=== PATIENT | male | born 1955 | race Caucasian/White ===

== ENCOUNTER 2019-08-22 19:45 | Emergency (ER) | payer OTHER ==
[~2019-08-22] VITALS: Ht 167.6 cm; Wt 70.3 kg
[2019-08-22] MEDS ORDERED: DOXYCYCLINE 10100 M2 PO (20:19)
[2019-08-22 20:40] VITALS: BP 172/99
== END 2019-08-22 20:41 | disposition home or self-care (01) ==
LOC: M.ERS 19:45
DX: L73.9 Follicular disorder, unspecified (principal)

== ENCOUNTER 2019-09-07 15:52 | Inpatient (IN) | payer OTHER ==
[~2019-09-07] VITALS: Ht 172.7 cm; Wt 75.1 kg
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
--- NOTE | ~2019-09-07 | CON ---
[address] [address] CONSULTATION Name: JULIUS BOYKIN Wilfredo Room: [address] IN .R.#: [id number] Admission: 09/09/19 Attend Phys: Shara Melendrez Discharge: Date of : 57 Report #: [id number] THIS REPORT FOR: //name// cc: PAM Feng No family physician/PCP PAM - No family physician/PCP ~ THIS REPORT FOR: //name// CC: [facility] physician/PCP Grant Rodriguez DATE OF SERVICE: 09/24/2019 HISTORY OF PRESENT ILLNESS: This is a 64-year-old male patient who was seen by me for altered mental status. The patient apparently has a history of significant alcohol intake. His son is here. He indicated that his memory was falling, but I do not know how bad it was. The record says that he has alcoholic dementia. He has fallen down multiple times. He does not provide any history because he virtually has no memory. A 14-point review of system was carried out from the patient. He does not have much memory. His family does not know a lot history either. He was agitated and confused, but he has become somewhat better. On admission, he had a white count of 19,000. He does have a history of depression and multiple abrasions as per record. This is all the 14-point review of system I can carry out. PAST MEDICAL HISTORY: Positive for alcohol. FAMILY HISTORY: Unavailable. SOCIAL HISTORY: He drinks heavy amount of alcohol. PHYSICAL EXAMINATION: NEUROLOGIC: Pretty limited. He does have speech. When I asked him what month it is, he says it is December. He does not know the name of the president and he does not know what hospital he is in. He appeared to be having some hallucination and misinformation. He thinks he is in downtime and he thinks somebody is outside. Rest of the examination was difficult because of his condition, but he moves all 4 extremities. He says he has sensation in the lower extremities. Either he did not relax, so he does not have any reflexes. He did not cooperate with the fundus examination. Cranial nerve examination was incomplete because of the patient's poor cooperation. CHEST: He does not have any respiratory difficulty. CARDIAC: Appears unremarkable. HEENT: He has no thyroid mass. VITAL SIGNS: Blood pressure is 136/67, pulse is 54, temperature is 98.4. LABORATORY DATA: His white count is 10.5 now, [place] [address] CONSULTATION Name: JULIUS BOYKIN Room: [address]#: [id number] Admission: 09/09/19 Attend Phys: Shara Melendrez Discharge: Date of : 57 Report #: [id number] IMAGING STUDY: Indicates a CT scan has been done, which appears unremarkable. IMPRESSION AND PLAN: If this patient has alcoholic dementia, then I do not think much can be done to help him. He needs to be on thiamine and multivitamin and he is on that. We will check his TSH and vitamin B12. We will try to confirm with family that he has documented dementia secondary to alcohol. May do MRI sometime as an inpatient or outpatient. Family is agreeable with this. Thank you very much for this referral. By: [id number] Sifuentes MD /nt
[~2019-09-07 15:52] MED LIST: DOXYCYCLINE 10100 M2 PO
[2019-09-07 16:18] VITALS: BP 130/75
[2019-09-07] MEDS ORDERED: HYPERTENSION MED (16:21)
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
[2019-09-07 16:48] LABS: URINE BILIRUBIN 1+ (Negative); URINE BLOOD 2+ (Negative); URINE CLARITY CLEAR; URINE COLOR DARK YELLOW; URINE GLUCOSE-RANDOM NEGATIVE (Negative); URINE KETONES TRACE (Negative); URINE LEUKOCYTES-REFLEX NEGATIVE (Negative); URINE NITRITE-REFLEX NEGATIVE (Negative); URINE PROTEIN 1+ (Negative); URINE SPECIFIC GRAVITY 1.025 (1.005-1.030)
[2019-09-07 16:49] LABS: ICTOTEST (BILI CONFIRMATORY) Negative (Negative)
[2019-09-07 16:59] LABS: AMP/METHAMP Negative (Negative); BARBITURATES Negative (Negative); BENZODIAZEPINES Negative (Negative); COCAINE Negative (Negative); METHADONE Negative (Negative); OPIATES Negative (Negative); PCP Negative (Negative); THC POSITIVE (Negative)
[2019-09-07 17:04] LABS: HEMATOCRIT 38.6 % (42.0-52.0); MCH 31.7 pg (26.0-34.0); MCHC 33.7 g/dL (28.0-37.0); NUCLEATED RBCS 0 /100WBC; PLATELET COUNT* 268 thou/uL (150-400); RBC 4.11 mil/uL (4.50-6.00); RDW-CV 14.2 % (10.5-14.5)
[2019-09-07 17:14] LABS: CALCIUM 8.6 mg/dL (8.5-10.1); CREATININE 0.9 mg/dL (0.6-1.3); POTASSIUM 3.7 mmol/L (3.5-5.1)
[2019-09-07 17:17] LABS: HYALINE CASTS >10 Many /LPF (None Seen); MUCUS 4-6 Moderate strn/LPF (None Seen); SQUAMOUS 0-3 Few /LPF (0-3)
[2019-09-07 17:18] LABS: BACTERIA-REFLEX 1-9 Few /HPF (None Seen); CRYSTALS None Seen /LPF (None Seen); URINE WBC-REFLEX 0-5 Rare /HPF (0-5)
[2019-09-07 17:19] LABS: TOTAL BILIRUBIN 0.8 mg/dL (<0.1-1.0); TOTAL PROTEIN 6.7 g/dL (6.4-8.2)
[2019-09-07 17:28] LABS: ACETAMINOPHEN < 2 ug/mL (10-30); ALCOHOL < 10 mg/dL (<10)
[2019-09-07 17:36] LABS: ABSOLUTE LYMPHOCYTES 1.1 thou/uL (0.8-5.3); ABSOLUTE MONOCYTES 1.3 thou/uL (0.0-1.2); ABSOLUTE NEUTROPHILS 16.5 thou/uL (1.6-8.1); PLATELET ESTIMATE ADEQUATE
--- NOTE | 2019-09-07 19:00 | NUR ---
ASSUMED CARE OF PT, REPORT RECEIVED FROM OLGA. PT QUIET, CALM, POLITE, AND COOPERATIVE. NO DIFFICULTY FOLLOWING COMMANDS, BUT IS FORGETFUL, AND NEEDS FREQUENT REMINDERS TO STAY IN HIS ROOM. SEE CONSTANT OBSERVATION FLOWSHEET. WILL CONTINUE TO MONITOR.
--- NOTE | 2019-09-08 11:21 | EKG ---
[place] [address] ELECTROCARDIOGRAM REPORT Name: JULIUS BOYKIN Room: [facility]#: [id number] Admission: 09/07/19 Attend Phys: Discharge: Date of : 57 Date of Service: 09/07/19 1645 Report #: [id number] THIS REPORT FOR: //name// [facility] ED Test Date: 2019-09-07 Test Time: 16:45:01 Pat Name: JULIUS BOYKIN Department: Room: Gender: Filling Mixer: [facility] : 1955 Requested By: Rogerio Vasques Order Number: [id number] MD: Tavares Awan Measurements Intervals [place] Rate: 83 P: 21 ME: 162 QRS: -24 QRSD: 89 T: 50 QT: 388 QTc: 456 Interpretive Statements Sinus rhythm Atrial premature complexes Probable left atrial enlargement Borderline left axis deviation No previous ECG available for comparison Electronically Signed On 09-08-2019 11:21:06 CDT by Tavares Awan [email or web address] <ELECTRONICALLY SIGNED> By: Tavares Awan MD, [facility] 09/08/19 1121 1645 44 Tavares Awan MD, FACC /EPI
[2019-09-09] VITALS (13 sets, daily range): BP systolic 95–149; BP diastolic 53–125
[2019-09-09 06:56] LABS: ABSOLUTE BASOPHILS 0.1 thou/uL (0.0-0.2); ABSOLUTE EOSINOPHILS 0.1 thou/uL (0.0-0.7); ABSOLUTE LYMPHOCYTES 2.3 thou/uL (0.8-5.3); ABSOLUTE MONOCYTES 1.2 thou/uL (0.0-1.2); ABSOLUTE NEUTROPHILS 10.7 thou/uL (1.6-8.1); BASOPHILS 0.4 %; HEMATOCRIT 38.7 % (42.0-52.0); HEMOGLOBIN 13.3 gm/dL (14.0-18.0); LYMPHOCYTES 16.1 %; MCH 32.2 pg (26.0-34.0); MCHC 34.4 g/dL (28.0-37.0); MCV 93.6 fL (80.0-100.0); MONOCYTES 8.3 %; MPV 8.2 fl. (7.2-11.1); NUCLEATED RBCS 0 /100WBC; PLATELET COUNT* 306 thou/uL (150-400); POLYS 74.2 %; RBC 4.13 mil/uL (4.50-6.00); RDW-CV 14.5 % (10.5-14.5); WBC 14.4 thou/uL (4.0-11.0)
[2019-09-09 07:04] LABS: CALCIUM 8.7 mg/dL (8.5-10.1); CREATININE 0.7 mg/dL (0.6-1.3); POTASSIUM 3.5 mmol/L (3.5-5.1)
[2019-09-09 07:09] LABS: ALBUMIN 2.8 g/dL (3.4-5.0); TOTAL BILIRUBIN 0.6 mg/dL (<0.1-1.0); TOTAL PROTEIN 6.5 g/dL (6.4-8.2)
--- NOTE | 2019-09-09 19:29 | NUR ---
PT RECEIVED FROM ER AT 0745, MILDLY SEDATED. BANANA BAG AND D5NS STARTED AT 100 MLS/HR. DAUGHTER (MARIMAR) CALLED FOR ADMISSION QUESTIONS AND UPDATED REGARDING THE CONDITION. PT'S CIWA-10, ATIVAN GIVEN PER PROTOCOL. WAKES UP AT TIMES BUT OTHERWISE SOMNOLENT. PRECEDEX STARTED PER PROTOCOL. ONE TO ONE OBSERVATION DC'd PER DR MANZANARES. BED ALARMS ON. PT INCONTINENT, GOOD URINE OUTPUT. Q2 TURNS PROVIDED.
[2019-09-10] VITALS (23 sets, daily range): BP systolic 119–174; BP diastolic 65–108
--- NOTE | 2019-09-10 05:01 | NUR ---
VITALS STABLE, AFEBRILE. DIFFICULT TO SEDATE PATIENT HE WAS TRYING TO CLIMB OUT OF BED. MULTIPLE ATIVAN DOSES FOR COMFORT, TREMORS NOTED WHEN AWAKE. PATIENT DECLINES HEADACHE,BUT OTHERWISE UNABLE TO ASSESS EXTENT OF WITHDRAWAL PATIENT WAS UNABLE TO ANSWER THOSE QUESTIONS. PRECEDEX RUNNING AT 1 MCG/KG/HR AT THIS TIME, WAS MAXED AT ONE POINT, REFER TO CHART FOR DETAILS. OTHERWISE UNEVENTFUL NIGHT. PATIENT INCONTINENT, MAKING PLENTY OF URINE. EXTERNAL CATHETER PLACED THIS AM, PATIENT TOLERATED WELL AND NOT TRYING TO PULL IT OUT AT THIS TIME. NO BM. Q2 TURNS TOLERATED, PATIENT CONSTANTLY SHIFTS SELF IN BED. BED IN LOWEST POSITION, BED ALARM ON. WILL CONTINUE MONITORING.
[2019-09-10 08:15] LABS: ALBUMIN 2.3 g/dL (3.4-5.0); CALCIUM 7.7 mg/dL (8.5-10.1); CREATININE 0.6 mg/dL (0.6-1.3); MAGNESIUM 1.9 mg/dL (1.8-2.4); POTASSIUM 3.6 mmol/L (3.5-5.1); TOTAL BILIRUBIN 0.4 mg/dL (<0.1-1.0); TOTAL PROTEIN 5.6 g/dL (6.4-8.2)
--- NOTE | 2019-09-10 12:52 | NUR ---
Nutrition: Pt admitted with ETOH W/D, DTs. Physician indicated mild PCM - defer. Pressure ulcer apparently on coccyx. Protein stores are severely low, alb 2.3, prealb 14.5. Regular diet ordered. Wt: 165#. Consult for "poor intake." Confusion. Ate 25% of BKFST today. B1, MVI. Increased nutrient needs R/T wound healing AEB chart review. RD will order Oracio bid. Please encourage good po intake at meal times. Consider mild risk at this time.
--- NOTE | 2019-09-10 19:19 | NUR ---
ASSESSMENT CHARTED. VSS THROUGHOUT SHIFT. CIWA CURRENTLY 4. PATIENT IS A&O TO PERSON/PLACE BUT IS FORGETFUL AND CONFUSED AT TIMES. BELONGINGS SENT HOME WITH SON-IN-LAW SHAQUILLE DELUCA. NO OTHER EVENTS DURING THIS SHIFT.
--- NOTE | 2019-09-10 22:40 | NUR ---
PATIENT OFF PRECEDEX GTT AND INCREASINGLY CONFUSED. DISCONNECTED BOTH IVs AND EXTERNAL CATHETHER X2. ATIVAN GIVEN. INDWELLING CATHETER AND MITTENS PLACED. BED ALARM ON. WILL CONTINUE MONITORING.
[2019-09-11] VITALS (29 sets, daily range): BP systolic 109–190; BP diastolic 58–110
--- NOTE | 2019-09-11 01:15 | NUR ---
UNABLE TO CALM PATIENT. PT INCREASINGLY CONFUSED, AGITATED AT TIMES. PRECEDEX UP TO 1 MCG/KG/HR WITH Q30 ATIVAN WITH MINAMAL EFFECT. PT PULLING MITTENS, COBAND AND LINES OFF. HR IN 120s. WILL REORIENT AND TITRATE DOWN TOLERATED.
--- NOTE | 2019-09-11 04:56 | NUR ---
ABLE TO TITRATE PRECEDEX DOWN TO 3MCG/KG/HR WITH ATIVAN PUSHES. VITALS STABLE, AFEBRILE. CIWA 11. PT DOES REPORT VISUAL AND AUDITORY HALLUCINATIONS. REPORTS SEEING "A DOG THAT IS PANTING." ALSO REPROTS HEADACHE, DENIES NAUSEA. ADEQUATE UOP, NO BM. BED ALARM ON. CALL LIGHT WITHIN REACH. WILL CONTINUE MONITORING.
[2019-09-11 06:04] LABS: MCH 31.7 pg (26.0-34.0); MCHC 33.5 g/dL (28.0-37.0); MCV 94.6 fL (80.0-100.0); MPV 8.6 fl. (7.2-11.1); RBC 3.8 mil/uL (4.50-6.00); RDW-CV 14.1 % (10.5-14.5); WBC 13.9 thou/uL (4.0-11.0)
[2019-09-11 06:18] LABS: CALCIUM 8.3 mg/dL (8.5-10.1); CREATININE 0.5 mg/dL (0.6-1.3); MAGNESIUM 1.9 mg/dL (1.8-2.4); POTASSIUM 3.3 mmol/L (3.5-5.1)
--- NOTE | 2019-09-11 13:18 | NUR ---
ICU rounds: Tele status. Hallucinations last evening. IVABX. CM spoke with Pt's son via phone. Pt resides at home with son and son's family. Pt is independent, family completes IADLs. Per son, Pt can ambulate but walks extremely slow. Son wants a walker at dc, if Pt qualifies. No hx of HH or SNF. Pt's PCP is Dr Martin. Per son, Pt has a hx of suicidal ideations, may need [facility] psych at dc. CM explained how that process works in getting someone to [facility]/inpt psych. Following.
--- NOTE | 2019-09-11 18:23 | NUR ---
ASSESSMENT CHARTED. CURRENT CIWA 21. NOT RESPONSIVE TO ATIVAN OR HALDOL. BP AND HR ELEVATED. PATIENT IS NOT DIRECTABLE. MITTENS APPLIED FOR SAFETY. NURSE AT THE BEDSIDE.
--- NOTE | 2019-09-11 21:53 | NUR ---
2000-PATIENT EXTEREMLY AGITATED, SWINGING WITH ARMS AND LEGS. CURSING AND INSULTING STAFF. INCREASED HR, BP, SKIN FLUSHED, TEMP 99.3F, MODERATE DIAPHORESIS. PT DENIES PAIN, NAUSEA. DISORIENTED X4. PT CONTINUOUSLY TAKING MITTENS OFF AND PULLING ON LINES/HU. BILATERAL SOFT WRIST RESTRAINTS APPLIED PER ORDER. Q30 ATIVAN AND HALDOL ON BOARD. WILL CONTINUE MONITORING.
[2019-09-12] VITALS (22 sets, daily range): BP systolic 123–190; BP diastolic 60–105
--- NOTE | 2019-09-12 05:29 | NUR ---
PT SLEPT THROUGH SOME OF THE NIGHT, NOW AWAKE AND TRYING TO CLIMB OUT OF BED. CIWA 20. COMPLAINS OF LEFT SHOULDER PAIN, DOES NOT LIKE MOVEMENT ON THAT SHOULDER. NO BM, 2000 CC BLOODY UOP. OTHERWISE UNEVENTFUL NIGHT. WILL CONTINUE REORIENTING/MONITORING.
[2019-09-12 06:32] LABS: CALCIUM 8.5 mg/dL (8.5-10.1); CREATININE 0.6 mg/dL (0.6-1.3); MAGNESIUM 1.8 mg/dL (1.8-2.4); POTASSIUM 3.6 mmol/L (3.5-5.1)
--- NOTE | 2019-09-12 14:33 | NUR ---
ICU rounds: Pt had a rough night. Pt in restraints and was agitated. Doing better now. CIWA is up. Ativan given last night. Pt is withdrawing. Possible tele psych consult pending for when Pt is more medically stable.
--- NOTE | 2019-09-12 18:31 | NUR ---
Marked progress today from yesterday. Rested comofortably until late morning. Displayed decreased agitation and increased ability to follow commands throughout the day, however requires soft restraints as he continues to reach for urinary catheter, IV's, SCD and monitoring equipment. Requires frequent reorientation with repeat questioning. PO intake improved. No BM x 2 days. PO fluids pushed. Bisacoydl given. James blood continues in urinary cath w/ adequate output. Continues to complain of left shoulder pain. Lidocaine patch applied. IV pain medication effective. Will continue to monitor until handoff
[2019-09-13] VITALS (23 sets, daily range): BP systolic 117–191; BP diastolic 55–126
--- NOTE | 2019-09-13 05:22 | NUR ---
UNEVENTFUL NIGHT. VITALS STABLE, AFEBRILE. PT SLEPT THROUGH THE NIGHT. ORIENTED TO SELF, , YEAR AND PRESIDENT WHEN ALERT. DISORIENTED X3/4 OTHERWISE. PT DOES REPORT SEEING A DOG IN THE ROOM. DENIES AUDITORY HALLUCINATIONS. PT REACHES FOR HU/LINES WHEN OFF RESTRAINTS DURING PASSIVE ROM/TURNS. 1800CC BLOODY UOP, NO BM. Q2 TURNS FOR SKIN INTEGRITY. WILL CONTINUE MONITORING.
--- NOTE | 2019-09-13 16:52 | NUR ---
ICU rounds: Sleeping alot. Combative and in restraints until this morning. Tele status tomorrow. CM to contact Pt's dtr to discuss dispo
--- NOTE | 2019-09-13 19:13 | NUR ---
PT VERY DROWSY AT THE BEGINNING OF THE SHIFT, CIWA 7. AT THE END OF THE SHIFT, PT TRYING TO GET OUT OF BED MULTIPLE TIMES AND PULLING ON LINES, VERY CONFUSED ATIVAN GIVEN ONCE. VSS. MINIMAL ORAL INTAKE. HU CATH CHANGED IT WAS LEAKING. URINE DARK RED. B/L MITTENS APPLIED. BED ALARMS ON.
[2019-09-14] VITALS (11 sets, daily range): BP systolic 121–170; BP diastolic 60–88
--- NOTE | 2019-09-14 03:16 | NUR ---
ASSUMED PATIENT CARE AT 1900. ASSESSMENTS COMPLETED CHARTED. CARDIAC MONITORING IN PLACE. PATIENT IS IMPULSIVE AND HAS TRIED TO GET OUT OF BED ON MULTIPLE OCCASIONS. FALL PRECAUTIONS IN PLACE FOR PATIENT SAFETY. BED LOCKED AND IN LOWEST POSITION. CLWR.
--- NOTE | 2019-09-14 08:23 | NUR ---
0919 ASSUMED CARE OF PATIENT.PLEASE SEE DOCUMENTED ASSESSMENT. PT IS VERY DROWSY AT THIS TIME AND NOT ANSWERING QUESTIONS. DR MANZANARES HERE. PT CAN TRANSFER TO TELE
[2019-09-14 09:52] LABS: HEMATOCRIT 40.9 % (42.0-52.0); HEMOGLOBIN 13.6 gm/dL (14.0-18.0); MCH 31.1 pg (26.0-34.0); MCHC 33.2 g/dL (28.0-37.0); MCV 93.7 fL (80.0-100.0); NUCLEATED RBCS 0 /100WBC; PLATELET COUNT* 428 thou/uL (150-400); RBC 4.37 mil/uL (4.50-6.00); RDW-CV 14.2 % (10.5-14.5); WBC 14.8 thou/uL (4.0-11.0)
[2019-09-14 10:36] LABS: ALBUMIN 2.6 g/dL (3.4-5.0); CALCIUM 8.3 mg/dL (8.5-10.1); CREATININE 0.8 mg/dL (0.6-1.3); POTASSIUM 3.7 mmol/L (3.5-5.1); TOTAL BILIRUBIN 0.4 mg/dL (<0.1-1.0); TOTAL PROTEIN 6.5 g/dL (6.4-8.2)
--- NOTE | 2019-09-14 10:41 | NUR ---
PATIENT TO MOVE TO TELEMETRY. SON ORION NOTIFIED. PT ATE VERY LITTLE BREAKFAST,REFUSING ALL BUT LIQUIDS. RECEIVED NOTICE OF AXILLA POSITIVE FOR MRSA.
--- NOTE | 2019-09-14 11:01 | NUR ---
PATIENT TO MOVE TO ROOM 222. REPORT TO ROBBIE. [place] WEI
[2019-09-14 11:33] LABS: LYMPHOCYTES ND %; POLYS ND %
--- NOTE | 2019-09-14 12:00 | NUR ---
ASSUMED CARE OF PATIENT FROM THE ICU. PT IS RESTLESS BUT FOLLOW COMMANDS. I AGREE WITH THE ICUS ASSESSEMENT. PT WAS EDUCATED ON POC, DISEASE PROCESS AND USING THE CALL LIGHT FOR ASSISTANCE. BED IN LOWEST POSITION AND CALL LIGHT IS IN REACH. BED ALARM IS ON, WILL CONTINUE TO MONITOR.
--- NOTE | 2019-09-14 13:20 | NUR ---
ICU rounds: Tele status, Pt transferred to room 222
[2019-09-15 00:44] VITALS: BP 153/71
[2019-09-15 04:12] VITALS: BP 116/72
--- NOTE | 2019-09-15 04:18 | NUR ---
INITAL ASSESMENT COMPLETED AT 1944. PT'S CIWA AT THAT TIME 21. UNABLE TO ORIENT PT.PT UNABLE TO UNDERSTAND OR FOLLOW INSTRUCTIONS. PT GIVEN PRN ATIVAN. UNABLE TO DRAW AM LABS THIS MORNING. PT PULLING AND GRABBING WHILE ATTEMPTING TO DRAW BLOOD.
--- NOTE | 2019-09-15 06:29 | NUR ---
PT RESTLESS AGAIN THIS AM. PT ATTEMPTING TO PULL OUT SALINE LOCK AND CLIMB OVER SIDE RAILS. PT NO FOLLOWING COMMANDS, CIWA SCORE > 15. PT GIVEN PRN ATIVAN AND VISTARIL.
[2019-09-15 08:20] VITALS: BP 129/63
[2019-09-15 11:56] VITALS: BP 139/62
[2019-09-15 17:01] VITALS: BP 157/72
--- NOTE | 2019-09-15 19:03 | NUR ---
ASSUMED PT CARE AT 0730, FULL ASSESSMENT DONE CHARTED. PT ALERT TO SELF ONLY, VERY CONFUSED, HE DID NOT OPEN EYES OR RESPOND VERBALLY THIS AM FOR THE FIRST FEW HOURS OF MY SHIFT. HE DID START WAKING UP AND ATE SOME LUNCH WITH ASSISTANCE. IV WAS PULLED OUT, PT PULLING AT HU SO IT WAS REMOVED, URINE BECAME DARK TEA COLORED. IV REPLACED IN RAC.ATTEMPTED TO HAVE PT STAND AT BEDSIDE BUT HE WAS UNABLE WITH HIS KNEES BUCKLING UNDER HIM. HE WAS TURNED Q2H, STG 1 PI TO COCCYX NOTED, BARRIER CREAM APPLIED. UPDATED PTS DTR ON CARE. FALL PRECAUTIONS MAINTAINED WITH BED ALARM ON.
[2019-09-15 20:00] VITALS: BP 176/82
[2019-09-16] VITALS: BP 174/99
[2019-09-16 04:00] VITALS: BP 147/68
[2019-09-16 05:09] LABS: HEMATOCRIT 38.5 % (42.0-52.0); HEMOGLOBIN 12.5 gm/dL (14.0-18.0); MCH 31.8 pg (26.0-34.0); MCHC 32.6 g/dL (28.0-37.0); MCV 97.8 fL (80.0-100.0); MPV 8.8 fl. (7.2-11.1); RBC 3.94 mil/uL (4.50-6.00); RDW-CV 14.5 % (10.5-14.5); WBC 10.1 thou/uL (4.0-11.0)
[2019-09-16 05:30] LABS: ALBUMIN 2.3 g/dL (3.4-5.0); CALCIUM 8.6 mg/dL (8.5-10.1); CREATININE 0.6 mg/dL (0.6-1.3); POTASSIUM 3.8 mmol/L (3.5-5.1); TOTAL BILIRUBIN 0.3 mg/dL (<0.1-1.0); TOTAL PROTEIN 6.1 g/dL (6.4-8.2)
--- NOTE | 2019-09-16 05:43 | NUR ---
ASSESSMENT COMPLETED AT BEDSIDE, PLEASE REFER TO CHARTING FOR DETAILS. MEDICATIONS ADMINISTERED PER MAR. HOURLY ROUNDING FOR SAFETY. FALL PRECAUTIONS IN PLACE, BED ALARM IS ON AND CALL LIGHT WITHIN REACH. PT CONT TO HAVE EPISODES OF CONFUSION AND IMPULSIVE BEHAVIOR, BUT IS REDIRECTABLE. REQUIRED PRN INTERVENTION X2 THIS SHIFT.
[2019-09-16 08:00] VITALS: BP 154/84
[2019-09-16 14:46] VITALS: BP 128/80
[2019-09-16 18:43] VITALS: BP 145/65
[2019-09-16 20:00] VITALS: BP 162/67
[2019-09-17 00:28] VITALS: BP 123/65
[2019-09-17 04:00] VITALS: BP 136/71
--- NOTE | 2019-09-17 05:12 | NUR ---
No acute event this shift. Pt impulsive, getting out of bed beginning of shift. Gait unsteady. Pt still confused. Pulled IV out, inserted new IV at L hand. Reorient frequently, pt easy to redirect. Melatonin and diphenhydramine given- then noted sleeping, most of the night. Pt sinus rhythm/grupo on tele. Pt incontinent of urine. Hourly rounding observed. Safety precaution, fall risk. Will continue to monitor.
[2019-09-17 08:00] VITALS: BP 137/66
--- NOTE | 2019-09-17 11:48 | NUR ---
SW following, possible for pt to be ready to dc home with family assist tomorrow vs inpt psych if still warrented. SW to order RW at dc if pt also still qualifies and needs RW. Possible HH to be arranged if pt does not need inpt psych.
[2019-09-17 12:56] VITALS: BP 115/63
[2019-09-17 16:03] VITALS: BP 152/75
--- NOTE | 2019-09-17 17:28 | NUR ---
PT OX1. VERY CONFUSED,FORGETFUL. PT IS IMPULSIVE AND UNABLE TO REMEMBER DIRECTIONS. FORGETS LIMITATIONS. VSS ON RA. PT GOAL TO IMPROVE MEMORY AND STRENGTH.CM ASSISTING FAMILY WITH OPTIONS. PATIENT REQUIRES CONSTANT SUPERVISION.
[2019-09-17 19:47] VITALS: BP 134/96
--- NOTE | 2019-09-18 06:27 | NUR ---
NO ACUTE CHANGES THROUGHOUT SHIFT. NO IMPROVEMENT IN MENTAL STATUS. ALL ROUNDINGS COMPLETED, ALL NEEDS MET, FULL ASSESSMENT COMPLETED CHARTED. PERSONAL ITEMS AND CALL LIGHT IN REACH, SITTER IN ROOM.
[2019-09-18 08:00] VITALS: BP 142/73
--- NOTE | 2019-09-18 11:16 | NUR ---
Pt now with 1:1. Dr Donis recommeding SNF at dc, dc will be pending 24 hour sitter free and an accepting facility. SW to speak with pt son Peterson about pt/family facility preferences and fax referrals in preparation for when pt is ready to dc. Also pending pt able to be alert, oriented, able to make decisions for himself as there is no DPOA and pt son asking his brother if he would be open to being guardian if necessary and to follow up with SW on answers. SW to continue to follow.
[2019-09-18 12:09] VITALS: BP 158/77
--- NOTE | 2019-09-18 15:46 | NUR ---
WOUND NURSE: PATIENT SEEN TO ADDRESS MULTIPLE SKIN LESIONS NONE OF WHICH ARE OPEN OR DRAINING WOUNDS. PICTURE OF SCALP WOUND NOT OBSERVED UPON ASSESSMET. RIGHT FOREAREM CONTAINS A PINK SCAR. RIGHT AXILLA WITH DRY SKIN OVER SCARS. LUE NO WOUNDS IDENTIFIED. BLE WITH MULTIPLE SMALL SCABS WHICH ARE INTACT AND NOT DRAINING. SACRUM WITH RED, BLANCHEABLE SKIN. NO OPEN WOUNDS. ENCOURAGED PATIENT TO REPOSITION SELF AND AVOID LYING IN THE SUPINE POSITION. PATIENT HAS A SITTER AND SHE WAS INSTRUCTED ON REPOSITIONING ALSO. PATIENT WITH CONFUSION AND LIMITED ABILITY TO ABSORB TEACHING AT THIS TIME.
[2019-09-18 16:32] VITALS: BP 115/93
[2019-09-18 19:35] VITALS: BP 123/85
[2019-09-18 21:38] LABS: URINE BILIRUBIN NEGATIVE (Negative); URINE BLOOD 2+ (Negative); URINE CLARITY CLEAR; URINE COLOR YELLOW; URINE GLUCOSE-RANDOM NEGATIVE (Negative); URINE KETONES NEGATIVE (Negative); URINE LEUKOCYTES NEGATIVE (Negative); URINE NITRITE NEGATIVE (Negative); URINE PROTEIN NEGATIVE (Negative); URINE UROBILINOGEN 0.2 E.U./dl (0.2-1.0)
[2019-09-18 22:09] LABS: BACTERIA 1-9 Few /HPF (None Seen); CASTS None Seen /LPF (None Seen); CRYSTALS None Seen /LPF (None Seen); SQUAMOUS 0-3 Few /LPF (0-3); URINE RBC 0-2 Rare /HPF (0-2); URINE WBC 0-5 Rare /HPF (0-5)
[2019-09-19 00:05] VITALS: BP 148/70
[2019-09-19 00:47] VITALS: BP 123/85
--- NOTE | 2019-09-19 06:05 | NUR ---
NO ACUTE CHANGES THROUGHOUT SHIFT. VSS. ALL ROUNDINGS COMPLETED, ALL NEEDS MET, FULL ASSESSMENT COMPLETED CHARTED.
[2019-09-19 08:00] VITALS: BP 171/82
--- NOTE | 2019-09-19 10:54 | NUR ---
ASSUMED PT CARE REPORT RECEIVED FROM NURSE PT IS AOX1 TO SELF, AGITATED, IMPULSIVE, CONFUSED. DENIES PAIN. MEDICAL SURGICAL STATUS. ON RA. RIGHT UPPER ARM IV ACCESS. SKIN INTACT WITH SOME ABRAISONS. ACCUCHECK. SITTER 1:1. PATCHES ADMINISTERED OREDERED. PER SITTER, PATIENT IS TOO IMPULSIVE TO BE LEFT ALONE STILL. FALL PRECAUTION IN PLACE. WILL CONTINUE TO MONITOR PT.
[2019-09-19 12:30] VITALS: BP 145/86
--- NOTE | 2019-09-19 12:56 | NUR ---
no restrains needed. no restrains used on patient during this shift. pt complains of l shoulder pain. this was communicated to
--- NOTE | 2019-09-19 15:34 | NUR ---
temp rechecked at 1230. see chat. pt got up out of bed to walk with nurses assistance. pt is steady on his feet. denies pain. pt walked back and forth from his bed to the bedroom door. pt now is recliner. denies pain. chair alarm is on. will continue to monitor.
[2019-09-19 16:00] VITALS: BP 141/77
--- NOTE | 2019-09-19 16:47 | NUR ---
Pt remains with 1:1, confused, tele psych deemed unable to make decisions. Pending possible neuro eval, therapy recommendations, placement. SW spoke with both sons Peterson and Jayson, Jayson willing to be guardian; SW to discuss with drafting supervisor and risk management to begin process as will be needed for placement at dc. Jayson said that area [phone] would be preferred for pt placement. Pt's dtr's boyfriend called upset that he was taken off of information list and claimed that Shelia was DPOA, there is not DPOA and this is untrue according to both of pt sons. There was a hotline that SW called [facility] to follow up on for more information as well. SW to continue to follow to assist with safe dc planning.
[2019-09-19 20:15] VITALS: BP 134/96
--- NOTE | 2019-09-20 06:25 | NUR ---
NO ACUTE CHANGES THROUGHOUT SHIFT. PT BEGAN SHIFT AGITATED AND COMBATIVE. SECURITY WAS CALLED TWICE AND MEDICATION WAS ADMINISTERED PER APR. AT APPROX. 2230 THE PT BEGAN TO CALM DOWN AND SLEEP THROUGH SOME OF THE NIGHT. ALL ROUNDINGS COMPLETED, ALL NEEDS MET, FULL ASSESSMENT COMPLETED CHARTED.
[2019-09-20 09:19] LABS: HEMATOCRIT 40.3 % (42.0-52.0); HEMOGLOBIN 13.3 gm/dL (14.0-18.0); MCH 30.8 pg (26.0-34.0); MCHC 33.1 g/dL (28.0-37.0); MCV 93.1 fL (80.0-100.0); MPV 8.7 fl. (7.2-11.1); RBC 4.32 mil/uL (4.50-6.00); RDW-CV 14.2 % (10.5-14.5); WBC 11.5 thou/uL (4.0-11.0)
[2019-09-20 09:20] LABS: CALCIUM 8.9 mg/dL (8.5-10.1); CREATININE 0.8 mg/dL (0.6-1.3); MAGNESIUM 1.8 mg/dL (1.8-2.4); POTASSIUM 3.4 mmol/L (3.5-5.1)
[2019-09-20 13:17] VITALS: BP 136/55
--- NOTE | 2019-09-20 16:54 | NUR ---
SON, JULIUS CALLED CELL PHONE AND STATED HE THINKS JESSICA RODAS, WHO IS JULIUS,S SISTER (MARIMAR) S.O., CALLED THE NURSE TODAY AND PRETENDED TO BE JULIUS. HE SAID NOT TO GIVE ANY INFORMATION TO ANY 299 PHONE NUMBER. ONLY HIS THAT STARTS WITH [phone] OR HIS BROTHER JOVANY PHONE STARTING WITH [phone].
--- NOTE | 2019-09-20 17:35 | NUR ---
assumed pt care report received from nurse. pt is aox1 to self. on ra. medical surgical status. sitter 1:1 in room with patient. pt denies pain. medication given as ordered. pt out of bed to chair with sitter's help. psych re-consulted. recommendations were communicated to via a page and placed in patient's chart. contact precautionin place. will continue to monitor
--- NOTE | 2019-09-20 17:44 | NUR ---
patient received a shower this afternoon. bath given with hibiclens this afternoon.
[2019-09-20 20:00] VITALS: BP 142/60
--- NOTE | 2019-09-21 05:05 | NUR ---
PATIENT IN RECLINER AT BEGINNING OF SHIFT; SITTER AT BEDSIDE. PT ALERT/ORIENTED TO PERSON, CONFUSED AND FORGETFUL. PT HAS BEEN COOPERATIVE DURING THIS SHIFT. PT SLEPT WELL. DSG ON RT LEG INTACT. FREQUENTLY USED ITEMS AND CALL LIGHT WITHIN REACH. SIDERAILS UPX3 AND BED ALARM ON. PT REMAINS IN ISOLATION FOR MRSA. WILL CONTINUE TO MONITOR.
--- NOTE | 2019-09-21 07:10 | NUR ---
CHANGE OF SHIFT, BEDSIDE REPORT GIVEN PATIENT SEEN AT BEDSIDE, IN BED ASLEEP ASSUMED PATIENT CARE
[2019-09-21 08:00] VITALS: BP 151/78
--- NOTE | 2019-09-21 13:59 | NUR ---
PATIENT TRANSFERRED TO 117 PERSONAL BELONGIGNS SENT REPORT GIVEN TO REYES CARDOZALEAF STAMPER, SON ORION NOTIFIED PATIENT MOVED VIA GOOD CONDITION
[2019-09-21 16:35] VITALS: BP 148/70
--- NOTE | 2019-09-21 17:21 | NUR ---
PT A&OxSELF. NO IV. ON RA. SITTER IN PLACE FOR BEING IMPULSIVE. PT IS CALM AND COOPERATIVE MOST OF THE TIME, DOES HAVE TIMES OF REFUSING TO DO TASKS. PT REFUSED TO TAKE TRAZADONE AT DINNER, STATED THAT HE WILL TAKE IT WHEN HE IS READY FOR BED. DENIED PAIN. DENIED N/V. UP WITH STB ASSIST. CALL LIGHT WITHIN REACH. WILL CONTINUE TO MONITOR.
[2019-09-21 20:00] VITALS: BP 158/80
--- NOTE | 2019-09-22 04:39 | NUR ---
PATIENT HAS REMAINED ALERT AND ORIENTED TO SELF AND FAMILY. IMPULSIVE. UP AND DOWN FREQUENTLY. SITTER PRESENT FOR SAFETY. VITAL SIGNS STABLE. MEDS PER ORDER. CONTINUE TO MONITOR.
[2019-09-22 08:45] VITALS: BP 144/75
[2019-09-22 16:00] VITALS: BP 157/82
--- NOTE | 2019-09-22 18:29 | NUR ---
PATIENT ALERT AND ORIENTED TO SELF. CONFUSED AND FORGETFUL. VITAL SIGNS STABLE ON ROOM AIR. AFEBRILE. 1 TO 1 SITTER MAINTAINED AT BEDSIDE. DENIES NAUSEA AT THIS TIME. PAIN BEING MANAGED WITH PO MEDICATION. ISOLATION FOR MRSA MAINTAINED. FALL PRECAUTIONS IN PLACE AND BED ALARM ON. HOURLY ROUNDS MAINTAINED THROUGHOUT THE SHIFT. CALL LIGHT WITHIN REACH. NURSING WILL CONTINUE TO MONITOR.
[2019-09-22 20:30] VITALS: BP 118/66
[2019-09-22 23:49] VITALS: BP 124/65
[2019-09-23 04:15] LABS: HEMATOCRIT 32.4 % (42.0-52.0); MCH 31.7 pg (26.0-34.0); MCHC 34.1 g/dL (28.0-37.0); MCV 93.1 fL (80.0-100.0); MPV 8.6 fl. (7.2-11.1); RBC 3.48 mil/uL (4.50-6.00); RDW-CV 13.9 % (10.5-14.5); WBC 10.5 thou/uL (4.0-11.0)
[2019-09-23 04:28] LABS: ALBUMIN 2.5 g/dL (3.4-5.0); CALCIUM 8.1 mg/dL (8.5-10.1); CREATININE 0.8 mg/dL (0.6-1.3); MAGNESIUM 1.9 mg/dL (1.8-2.4); POTASSIUM 3.7 mmol/L (3.5-5.1); TOTAL BILIRUBIN 0.2 mg/dL (<0.1-1.0); TOTAL PROTEIN 5.7 g/dL (6.4-8.2)
[2019-09-23 08:50] VITALS: BP 133/58
[2019-09-23 15:38] VITALS: BP 174/71
--- NOTE | 2019-09-23 17:52 | NUR ---
PATIENT ALERT AND ORIENTED TO SELF AND PLACE. CONFUSED AND FORGETFUL. VITAL SIGNS STABLE ON ROOM AIR. AFEBRILE. PAIN BEING MANAGED WITH PO MEDICATION. DENIES NAUSEA AT THIS TIME. 1:1 SITTER DISCONTINUED TODAY. FALL PRECAUTIONS IN PLACE AND BED ALARM ON. HOURLY ROUNDS MAINTAINED TRHOGHOUT THE SHIFT. CALL LIGHT WITHIN REACH. NURSING WILL CONTINUE TO MONITOR.
[2019-09-23 20:01] VITALS: BP 142/75
--- NOTE | 2019-09-24 05:27 | NUR ---
PATIENT IS SLEEPING WELL THROUGH SHIFT. WHEN HE NEEDS TO GET UP HE GETS CONFUSED AND WANTS TO LEAVE. HE HAS TRIED TO GET UP AND LEAVE AND IS IMPULSIVE BUT CAN BE REORIENTED AND BACK TO BED. HE IS ON ROOM AIR, ALERT TO SELF. SITTER PRESENT THROUGH SHIFT. WILL CONTINUE TO MONITOR.
[2019-09-24 07:30] VITALS: BP 136/67
[2019-09-24 14:56] VITALS: BP 142/69
--- NOTE | 2019-09-24 15:16 | NUR ---
pt's son poli came by cm desk to get an update on guardianship process, as poli stated he was told by cm, karolina, she would get the process started. chanel explained to poli that the pt will be assessed by nuerology and if he and the pt's doctor is in agreeance that the pt is incapaciated [facility] legal will be contacted re guardianship. left for Jayson to confirm he is wanting to be pt's anastacio need be ([phone]), as stated in the notes.
--- NOTE | 2019-09-24 18:42 | NUR ---
pt alert to self but confused on time and place. pt still impulsive when he gets up he does not call for nurse assist. 1:1 sitter in room. tried to move her more to hallway but patient keeps getting out of bed by self. son Peterson did come to see him this afternoon and talked with social media specialist. patient had shower with numerical control machine tool operator assist and she stated he did have a large bm after dulcolax tabs given this am. will continue to monitor.
--- NOTE | 2019-09-25 06:27 | NUR ---
PT HAD GOOD NIGHT OVERALL, INITIALLY WAS A BIT AGITATED BUT FELL ASLEEP AND RESTED WELL, AMBULATED IN HALLS X2 WITH PCT. DID C/O UPSET STOMACH IN EPIGASTRIC AREA THAT WAS RELEIVED BY SURYA BARGER
--- NOTE | 2019-09-25 09:21 | NUR ---
PT UP WALKING AROUND ROOM TALKING ABOUT TAKING OFF AND GOING TO [place]. STATED HE HAS FAMILY THERE.
--- NOTE | 2019-09-25 10:09 | NUR ---
DISCUSSED WITH . HE WOULD LIKE REFERRAL MADE TO [facility]. CALLED REFERRAL INTO [facility]/DIRECTOR [phone]. INFORMATION GIVEN IN VOICE MAIL. WILL AWAIT RETURN CALL.
--- NOTE | 2019-09-25 11:16 | NUR ---
patient up and down out of bed walking around in room. thought paper towel dispenser was coffee machine and was holding coffee cup under it to get coffee. informed him it was paper towel dispenser and that he would not be getting any coffee from it. decaf coffee given to pt.
[2019-09-25] MEDS ORDERED: ZYPREXA 5 MG TAB5 M1 PO (11:55)
[2019-09-25] MEDS ORDERED: TRAZODONE HCL100 MG PO (11:55)
[2019-09-25] MEDS ORDERED: CATAPRES-TTS 20.2 MG TRANSDERM (11:57)
--- NOTE | 2019-09-25 16:49 | NUR ---
PT ORIENTED TO SELF ONLY. CONFUSED AND KEEPS GETTING UP OUT OF BED WITHOUT CALLING FOR NURSE. 1:1 SITTER IN ROOM. PATIENT HAS TO FREQUENTLY BE REORIENTED. WILL NOT STAY IN BED AND DOES NOT SIT IN CHAIR FOR VERY LONG. [place] SEARS STATED HE WILL COME UP AFTER WORK AND INFORMED PT OF THIS. NO C/O PAIN. WILL CONTINUE TO MONITOR.
--- NOTE | 2019-09-26 01:48 | NUR ---
PT HAS BEEN RESTLESS ALL SHIFT, SLEEPING FOR A SHORT TIME THEN PACING IN ROOM AND AMBULATING IN [place] WITH SITTER. PT IS EASILY REDIRECTED BUT IS TRYING TO MAKE A PLAN FOR LEAVING THE FACILITY TO GO HOME. PTs ATTENTION SPAN IS ABOUT 20-30 SECONDS AND THEN FORGETS WHAT HIS MAIN OBJECTIVE IS. PT IS AO XSELF IS ABLE TO AMBULATE WITH STANDBY ASSIST. HEART RRR, LUNGS CTA, PT DENIES PAIN. VSS, PT HAS SCABS ON BLE. VOIDING PER TOILET WITH BRIEF IN PLACE. WCTM
--- NOTE | 2019-09-26 10:11 | NUR ---
CM district operations manager, Isa Faith, left message w/legal re: confidentiality issues.
--- NOTE | 2019-09-26 13:11 | NUR ---
Pt transferred to telemetry unit. Pt was AO to self at tx time. Pt was somnolent in the bed after receiving IM Ativan for MRI today. Pt has sitter at bedside for safety. Report given to nurse, belongings sent with patient. Patient left unit via bed and 2 transporters.
[2019-09-26 16:00] VITALS: BP 168/82
--- NOTE | 2019-09-26 18:06 | NUR ---
ASSUMED CARE OF PATIENT THIS AFTERNOON. REPORT RECEIVED FROM FRITZ CARDOZA. PATIENT IS CONFUSED. PATIENT HAS A SITTER IN ROOM. PATIENT IS UP STANDBY ASSIST. PATIENT CAN BE DIFFICULT TO REDIRECT AT TIMES. PATIENT HAS EXCELLENT APPETITE. WILL CONTINUE TO MONITOR.
[2019-09-26 20:00] VITALS: BP 149/72
[2019-09-27 00:10] VITALS: BP 137/68
[2019-09-27 04:00] VITALS: BP 115/61; BP 154/76
--- NOTE | 2019-09-27 05:39 | NUR ---
Confused and impulsive at start of shift. He has a 1:1 sitter and she had to help him to stay in his room. His vitals are stable. He chewed his bedtime meds and spit out some of them,it's unknown what he spit out. He did improve his mood and fell asleep. He is med-surg status. He did sleep well.
[2019-09-27 08:35] VITALS: BP 143/88
[2019-09-27 10:12] LABS: ABSOLUTE BASOPHILS 0.2 thou/uL (0.0-0.2); ABSOLUTE EOSINOPHILS 0.2 thou/uL (0.0-0.7); ABSOLUTE LYMPHOCYTES 1.9 thou/uL (0.8-5.3); ABSOLUTE MONOCYTES 0.8 thou/uL (0.0-1.2); ABSOLUTE NEUTROPHILS 9.2 thou/uL (1.6-8.1); BASOPHILS 1.3 %; EOSINOPHILS 1.4 %; HEMATOCRIT 41.3 % (42.0-52.0); HEMOGLOBIN 13.4 gm/dL (14.0-18.0); LYMPHOCYTES 15.7 %; MCH 30.6 pg (26.0-34.0); MCHC 32.5 g/dL (28.0-37.0); MONOCYTES 6.2 %; MPV 8.7 fl. (7.2-11.1); NUCLEATED RBCS 0 /100WBC; PLATELET COUNT* 416 thou/uL (150-400); POLYS 75.4 %; RDW-CV 14.3 % (10.5-14.5); WBC 12.2 thou/uL (4.0-11.0)
[2019-09-27 10:26] LABS: ALBUMIN 3.3 g/dL (3.4-5.0); CREATININE 0.7 mg/dL (0.6-1.3); POTASSIUM 4.6 mmol/L (3.5-5.1); TOTAL BILIRUBIN 0.3 mg/dL (<0.1-1.0); TOTAL PROTEIN 6.6 g/dL (6.4-8.2)
--- NOTE | 2019-09-27 17:08 | NUR ---
PATIENT UP TO CHAIR. PATIENT IS CONFUSED AND IMPULSIVE. HAS SITTER IN ROOM. PATIENT HAS BEEN COOPERATIVE THROUGHOUT DAY. PATIENT HAS COMPLAINTS OF GENERALIZED PAIN, TREATED WITH TYLENOL/IBUPROFEN. PATIENT HAS GOOD APPETITE. MEDICATION CRUSHED IN PUDDING. WILL CONTINUE TO MONITOR.
--- NOTE | 2019-09-27 17:59 | NUR ---
UPDATED SON JULIUS WHOM IS LISTED CONTACT.
[2019-09-27 20:00] VITALS: BP 170/88
--- NOTE | 2019-09-28 07:58 | NUR ---
ASSUMED PT CARE AT APPROX 1930. PT IS AWAKE AND ORIENTED TO SELF, CONFUSED AND FORGETFUL, SOMETIMES IMPULSIVE, BUT IS MOSTLY REDIRECTABLE AND IS COOPERATIVE WITH CARE. NO ACUTE CHANGES OVER NIGHT. PT DID NOT NEED A 1:1 SITTER MOST OF THE NIGHT. CALL LIGHT WITHIN REACH. PT IS CLOSELY MONITORED. HIGH FALL PRECAUTIONS IN PLACE.
[2019-09-28 08:00] VITALS: BP 153/75
[2019-09-28 12:00] VITALS: BP 161/80
--- NOTE | 2019-09-28 12:26 | NUR ---
PT STILL IMPULSIVE,ABLE TO REDIRECT BUT CYCLES EVERY 2-4 MINUTES REQUIRING REDIRECTION. PT BECAME AGITATED. ORDER OBTAINED FOR MEDICATION. PT IS STILL ADAMENT ABOUT RELATIONSHIP WITH DAUGHTER, STATES THAT HE WANTS NOTHING TO DO WITH HER. WILL REASSESS BEHAVIOR.
--- NOTE | 2019-09-28 15:13 | NUR ---
CM SPOKE TO THE PATIENT TO ASSESS HIS COGNITION, AND TO INFORM AND DISCUSS DPOA. PT ABLE TO STATE HIS FIRST AND LAST NAME, BIRTHDATE MONTH DAY AND YEAR, AND COULD NAME HIS CHILDREN. CM INFORMED PT WHAT DPOA WAS, WHY IT IS NECESSICARY, AND HOW IT IS USED. PT CONFIRMED UNDERSTANDING AND NAMES HIS SON JULIUS BOYKIN (PRIMARY AGENT), AND ORION BOYKIN (SECONDARY AGENT). CM NOTARIZED DPOA PAPERWORK AND PLACED ORIGINAL AND COPY ON THE CHART. CM WILL REMAIN AVAILABLE TO ASSIST AND FOLLOW NEEDED.
--- NOTE | 2019-09-28 15:35 | NUR ---
[place] SEARS CAME TO THE HOSPITAL AT NOON TODAY TO SPEAK TO CM. CM PIGS FEET FINISHER WENT TO SPEAK TO SON. [place] SEARS WANTED TO KNOW WHY FAREED WAS LISTED NEXT OF KIN. INFORMED ORION THAT PER THE VISIT HISTORY IT APPEARS THAT FAREED WAS ADDED ON 08/22/19 DURING AN ER VISIT. INFORMED HIM THAT IT IS POSSIBLE THAT THE PATIENT INDICATED AT THAT TIME THAT HE WANTED TO ADD FAREED BUT WE CANNOT CONFIRM THAT INFORMATION. ORION WANTED TO KNOW IF THERE WAS A WAY TO REMOVE FAREED FROM NEXT OF KIN. FAREED IS THE FIANCE' OF HIS SISTER MARIMAR AND NEITHER ORION, JULIUS (SON) AND THE PATIENT WANT HIM LISTED, PER ORION. INFORMED ORION THAT THE PATIENT WILL NEED TO VERBALIZE THAT HE WOULD LIKE TO CHANGE THE NEXT OF KIN LISTED. PATIENT WAS ABLE TO CLEARLY STATE HIS NAME AND WHERE HE WAS AND THAT WE WOULD LIKE JULIUS ADDED AND FAREED REMOVED. NANI LAN WAS ABLE TO UPDATE NEXT OF KIN. ORION ALSO WANTED TO KNOW HOW HIS BROTHER JULIUS COULD OBTAIN DPOA. INFORMED HIM THAT THE PATIENT WOULD HAVE TO GIVEN A CLEAR DISCERMENT OF WHO HE WANTS LISTED AND WE CAN COMPLETE THE PAPERWORK WHILE HERE IN THE HOSPITAL. ROLAN GRANT, WILL COMPLETE DPOA FORM AND WILL PLACE A COPY ON THE CHART. ORION THEN WANTED TO KNOW IF THE PATIENT COULD GET HELP WITH A MEDICAID APPLICATION. HE STATED THAT HE SPOKE TO ANDRES FROM [facility] BUT HAS NOT HEARD ANYTHING BACK SINCE LAST TUESDAY. DAMIAN MEADOWS WAS NOTIFIED AND HE WILL SCREEN PATIENT ON TUESDAY. LASTLY, ORION WANTED TO KNOW WHAT THE DC PLANS ARE FOR THE PATIENT BECAUSE HE DOESN'T FEEL LIKE ANY OF HIS FAMILY MEMBERS WILL BE ABLE TO ADEQUATELY CARE FOR THE PATIENT AT HOME. INFORMED PATIENT THAT ONCE WE OBTAIN DPOA THEN WE WILL BE ABLE TO FIGURE OUT PLACEMENT. ORION VERBALIZED UNDERSTANDING. GE MADRID AND ORION ARE THE ONLY 3 VISITORS ALLOWED AT THIS TIME TO SEE THE PATIENT. ADMITTING UPDATED. JULIUS PLANS TO VISIT PATIENT ON TUESDAY. NURSING STAFF NOTIFED. CM TO CONTINUE TO FOLLOW FOR A SAFE DC PLANNING.
[2019-09-28 20:00] VITALS: BP 128/70
--- NOTE | 2019-09-28 20:56 | NUR ---
Spoke with Kendall Ho , the fiance on Naz Issa's daughter Shelia. He was upset because he and Shelia had been removed from the right to receive information list, evidently at the behest of Mr. Childs and other family members. I spoke with him at length about the note posted by [facility], and told him that I had no idea what reasons were given for the change, but that the patient had made the change of sound mind. He was upset, but cordial, and states that he is planning legal action against the other family members. No information was given to him in regards to the patinet's current condition.
--- NOTE | 2019-09-29 05:35 | NUR ---
ASSUMED PT CARE AT APPROX 1930. PT IS AWAKE, ORIENTED TO SELF ONLY, CONFUSED, IMPULSIVE AND FORGETFUL, HARD TO REDIRECT, AND KEPT ON PACING INSIDE THE ROOM. PT IS NOT IN DISTRESS, DENIES PAIN/DISCOMFORT. PT HAS 1:1 SITTER IN ROOM FOR SAFETY. NO ACUTE CHANGES THROUGHOUT THIS SHIFT. HIGH FALL PRECAUTIONS IN PLACE. PT IS CLOSELY MONITORED.
[2019-09-29 08:30] VITALS: BP 157/84
[2019-09-29 16:37] VITALS: BP 138/74
--- NOTE | 2019-09-29 19:21 | NUR ---
pt has remained alert to self and cooperative with staff. ambulates independently in room. he is easy to redirect in regard to attempting to leave room and enter hallway. pt is cooperative with staff in keeping his room tidy to decrease trip/fall risk.
[2019-09-29 20:00] VITALS: BP 132/76
[2019-09-30] VITALS: BP 126/63
--- NOTE | 2019-09-30 04:44 | NUR ---
ASSUMED PT CARE AT APPROX 1930. PT IS AWAKE AND ORIENTED X4. PT IS NOT IN DISTRESS. NO ACUTE CHANGES OVERNIGHT. CALL LIGHT WITHIN REACH, HOURLY ROUNDING DONE FOR PT SAFETY.
[2019-09-30 08:47] VITALS: BP 162/80
[2019-09-30 17:56] VITALS: BP 148/78
--- NOTE | 2019-09-30 18:22 | NUR ---
Pt has remained alert to self. Needs reminder as to date/location and rationale for continued hospitalization. Pt encouraged with potential for discharge from acute care tomorrow. Pt frequently needs reminder to stay in room and not wander down the reza
[2019-09-30 20:00] VITALS: BP 155/90
[2019-10-01] VITALS: BP 142/75
--- NOTE | 2019-10-01 02:30 | NUR ---
PT ALERT CONFUSED. WANDERING TO THE DOOR AND FREQUENTLY ATTEMPTING TO LEAVE ROOM. PT REDIRECTS EASILY. MED SURG STATUS. [facility] CALLED AND SAID THEY WILL TAKE PT TOMORROW IN THE AM. SURYA
[2019-10-01 08:34] VITALS: BP 146/83
--- NOTE | 2019-10-01 09:30 | NUR ---
ASSUMED PT CARE REPORT RECEIVED FROM NURSE PT IS OAX1 WANDERS A LOT IN ROOM. UP AD CHRISTIN. DENIES PAIN. ON RA. MEDICAL SURGICAL STATUS. PT IS TO TRANSFER/DC TO [facility]. PT LEFT THE UNIT AT 0850 AM ACCOMPANIED BY TRANSPORTER. REPORT CALLED AND GIVEN TO RN FROM [facility]. PT'S SON ALSO NOTIFIED OF DISCHARGE.
== END 2019-10-01 08:50 | DRG 896 ==
LOC: M.ERS 15:52 → M.TBA-ER 09-09 06:52 → M.2W 09-09 06:52 → M.ICU 09-09 06:52 → M.2W 09-09 06:52 → M.ICU 09-09 07:30 → M.2W 09-14 11:36 → M.ORTHSURG 09-21 14:12 → M.2W 09-26 13:11
PROVIDERS: Emergency Medicine Emergency Medical Services; Family Medicine; Internal Medicine; ADMIT Internal Medicine; ATTEND Internal Medicine
PROC: 0X943ZZ Drainage of Right Axilla, Percutaneous Approach (ICD-10-PCS; principal; 2019-09-08)
DX: F10.231 Alcohol dependence with withdrawal delirium (principal); G93.41 Metabolic encephalopathy; F03.91 Unspecified dementia, unspecified severity, with behavioral disturbance; L02.411 Cutaneous abscess of right axilla; R65.10 Systemic inflammatory response syndrome (SIRS) of non-infectious origin without acute organ dysfunction; E44.1 Mild protein-calorie malnutrition; F10.27 Alcohol dependence with alcohol-induced persisting dementia; F32.9 Major depressive disorder, single episode, unspecified; L73.2 Hidradenitis suppurativa; I95.9 Hypotension, unspecified; B95.62 Methicillin resistant Staphylococcus aureus infection as the cause of diseases classified elsewhere; F17.210 Nicotine dependence, cigarettes, uncomplicated; M75.32 Calcific tendinitis of left shoulder; M19.012 Primary osteoarthritis, left shoulder; I10 Essential (primary) hypertension; T14.8XXA Other injury of unspecified body region, initial encounter; X58.XXXA Exposure to other specified factors, initial encounter; Z68.25 Body mass index [BMI] 25.0-25.9, adult; Z03.818 Encounter for observation for suspected exposure to other biological agents ruled out; Y93.89 Activity, other specified; Y92.89 Other specified places as the place of occurrence of the external cause; Y99.8 Other external cause status